=== PATIENT | male | born 1960 | race Caucasian/White ===

== ENCOUNTER 2023-08-24 11:22 | Outpatient (CLI) | payer BC ==
[2023-08-24 19:07] LABS: CHOL/HDL RATIO 5.2 (<5.0); CHOLESTEROL 278 mg/dL; HDL CHOLESTEROL 53 mg/dL; LDL CHOLESTEROL,CALCULATED 186 mg/dL; LDL/HDL RATIO 3.5 (<3.6); TRIGLYCERIDES 197 mg/dL (48-352); VLDL CHOLESTEROL 39 mg/dL
== END 2023-08-24 11:23 | disposition home or self-care (01) ==
LOC: LAB.N 11:22
PROVIDERS: ATTEND Nurse Practitioner
DX: E78.01 Familial hypercholesterolemia (principal)
CPT/HCPCS: 36415; 80061; 83721

== ENCOUNTER 2023-11-06 14:43 | Outpatient (CLI) | payer BC ==
--- NOTE | 2023-11-06 15:34 | Sleep Patient Instructions ---
Sleep Center Visit Summary - Patient Visit Information Reason for Visit: Initial consult for evaluation of sleep disordered breathing and other sleep issues. - Patient Instructions Instructions Attached: Sleep Study Home Monitor Additional Instructions: You will be completing a sleep study, either an in-lab polysomnography (PSG) or home sleep study (HST). You will follow-up in the sleep care office after the sleep study is completed to hear the results and talk about therapy, if needed. You will be called by our office staff to schedule this appointment, but you may contact us with any questions. - Clinic Information Contact: [facility] [address] [place] [email or web address] T: [phone]
--- NOTE | 2023-11-06 15:35 | SLEEP CARE CONSULTATION ---
Information from patient questionnaire entered by Lisbeth Vega. I have reviewed and concur with the information entered by Lisbeth Vega. This document represents the service I personally performed and the decisions made by me, Annie Franklin ARNP. 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 denies: Choking, Snoring, Gasping for air Toss, Turn, or Twitch while sleeping: No Recalls having dreams: Yes Usually gets out of bed at: [id number] Feels refreshed in the morning: Yes (most of the time, unless shorter night) Morning headache: Yes (2-3 times a week; takes tylenol) Sleepy or fatigued during the day: No Ever fallen asleep while driving: No Takes day naps: Yes (not often; 1-2 times a month) Dreams during day naps: No Prior sleep studies: No Additional HPI information: I had the pleasure of seeing FUENTES BOUDREAUX today regarding the possibility of him having a sleep disorder. His current complaints are snoring and frequent night a wakenings. 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 He was talking with his armoured corps officer after a close call with heart. He suggested a sleep study for further evaluation of causation. He also gets up multiple times, 4-6 times a night, to use the restroom. His has noticed that he snores but still sleeps in same bed. - Parasomnia Symptoms Ever been unable to move upon waking from sleep: No Walks in sleep: No Talks in sleep: No Ever acted out dreams in sleep: No Ever felt weak in the knees when startled or emotional: No Bothered by creepy, crawly, restless sensations in legs: No Problems with memory or concentration: No Subjective Initial [place] Sleepiness Scale score: 11 (11/06/23) Past Medical History Past Medical History: reports: Arthritis, Arrythmia (A flutter), GERD Social History The patient's occupation is a RETIRED. Patient is and lives in . Have you smoked in the past 12 months: No Alcohol use: Yes Alcohol amount and frequency: 1-2 GLASSES 1-2 A WEEK Caffeine use: Yes Caffeine amount and frequency: 1 GLASS OR CAN 1-2 WEEK Family History Family history of sleep disordered breathing: No Allergies and Home Medications Known drug allergies: No (as listed) Drug allergies reviewed: Yes Home medication list reviewed: Yes (as listed) Allergy and home medication list: Allergies No Known Drug Allergies Allergy (Verified 11/04/23 09:47) Home Medications Medication Instructions Recorded Confirmed Last Taken Type Acetaminophen See Rx Instructions .[facility] 11/06/23 11/06/23 Unknown History Ascorbic Acid [Vitamin C] See Rx Instructions .[facility] 11/06/23 11/06/23 Unknown History Cholecalciferol (Vitamin D3) See Rx Instructions .[facility] 11/06/23 11/06/23 Unknown History [Vitamin D3] Dandilion Extrct See Rx Instructions .[facility] 11/06/23 Unknown History Emergen C See Rx Instructions .[facility]TE [facility] 11/06/23 Unknown History Glucosamine HCl/Hyaluronic See Rx Instructions .[facility]TE [facility] 11/06/23 11/06/23 Unknown History [Glucosamine-Hyaluronic Tab] Green Super Food See Rx Instructions .[facility]TE [facility] 11/06/23 Unknown History Hgh Stimulate See Rx Instructions .[facility] 11/06/23 Unknown History Ibuprofen See Rx Instructions .[facility]TE [facility] 11/06/23 11/06/23 Unknown History Magnesium See Rx Instructions .[facility]TE [facility] 11/06/23 11/06/23 Unknown History Omeprazole See Rx Instructions .[facility]TE [facility] 11/06/23 11/06/23 Unknown History Papaya Enzyme See Rx Instructions .ROUTE .11/06/23 Unknown History Pb Assist See Rx Instructions .[facility] 11/06/23 Unknown History Potassium Citrate [Potassium] See Rx Instructions .[facility]TE [facility] 11/06/23 11/06/23 Unknown History Prostate 5lx See Rx Instructions .[facility]OUTE [facility] 11/06/23 Unknown History Quercetin See Rx Instructions .[facility]TE [facility] 11/06/23 11/06/23 Unknown History Raw Zinc See Rx Instructions .ROUTE .[facility] 11/06/23 Unknown History Red Yeast Rice Extract [Red Yeast See Rx Instructions .ROUTE .[facility] 11/06/23 11/06/23 Unknown History Rice] Super Enzymes See Rx Instructions .ROUTE .[facility] 11/06/23 Unknown History Turmeric See Rx Instructions .ROUTE .[facility] 11/06/23 11/06/23 Unknown History Vit B Comp/Folic/Choline/Inosi See Rx Instructions .ROUTE [facility] 11/06/23 11/06/23 Unknown History [Super B-50 Complex Capsule] Vitamin E (Dl,Tocopheryl Acet) See Rx Instructions .ROUTE [facility] 11/06/23 11/06/23 Unknown History [Vitamin E] Xeo Juan R See Rx Instructions .ROUTE .[facility] 11/06/23 Unknown History Review of Systems Weight gain over past 5 years: 10-15 Weight loss over past 5 years: 5-10 Cardiovascular: reports: palpitations, irregular heart rate or pulse Gastrointestinal: reports: heartburn Urinary: reports: frequency Neurological: reports: headaches Psychiatric: denies: anxiety, depression Ear/Nose/Throat: reports: wisdom teeth removed. denies: tonsillectomy Endocrine: denies: thyroid disease Musculoskeletal: reports: joint pain, neck pain, back pain Immunologic: reports: rash, itching Physical Exam Vital signs obtained and entered by: LISBETH Deal MA Blood Pressure: 150/71 (RIGHT ARM) Cuff size: regular Heart Rate: 73 O2 Saturation: 98 Height: 5 ft 10.25 in Weight: 195 lb Body Mass Index: 27.8 BMI Classification: Overweight Neck circumference: 16 Mouth and throat: narrow oropharynx Soft palate: long Hard palate: normal Uvula: normal Uvula visualization: 50% Mallampati Class II Tongue: enlarged in size with teeth tobias on lateral edges Tonsils: small Neck: normal w/o lymphadenopathy or thyromegaly Heart: regular rate and rhythm Lungs: clear bilaterally Impression and Plan 1. Suspected Obstructive Sleep Apnea-Hypopnea Syndrome, as suggested by a history of loud and irregular snoring, frequent awakening during the night and nocturia. Narrow oropharynx and obesity are common predisposing factors for obstructive sleep apnea-hypopnea syndrome. I recommend proceeding to polysomnography to confirm the diagnosis and to assess severity. If the patient has significant sleep disordered breathing, a manual CPAP titration study will also be performed to find the optimal treatment pressure. I informed the patient of what the sleep studies involve and after some discussion, obtained agreement to proceed. The pathophysiology of obstructive sleep apnea-hypopnea syndrome was discussed with the patient and health risks of cardiovascular and cerebrovascular disease if not treated. Risks of drowsy driving discussed in detail and patient advised to avoid long distance driving and to ticket puller at the first sign of drowsiness. Patient agreed to plan. * Schedule polysomnography * Avoid long distance driving or driving when feeling sleepy. * Avoid alcohol, sedative and muscle relaxant around bedtime. * Attempt to lose weight. * Review instructions provided by trained office staff on how to prepare for the sleep study. * Return for follow-up after sleep study completed. Counseling Topics: Weight loss health impact Plan: sleep study and followup Visit Type: In Office Time Spent with Patient (minutes): 30 Provider Statement: I spent 100% of the Face to Face Visit with the patient with greater than 50% spent counseling the patient and coordination of care.
[2023-11-06 15:41] VITALS: BP 150/71; O2SAT 98
== END 2023-11-06 14:44 | disposition home or self-care (01) ==
LOC: SC 14:43
PROVIDERS: ATTEND Nurse Practitioner Family
DX: G47.8 Other sleep disorders (principal); R06.83 Snoring; R35.1 Nocturia
CPT/HCPCS: 99203; 99212

== ENCOUNTER 2023-11-19 13:54 | Outpatient (CLI) | payer BC | END 2023-11-19 13:55 | disposition home or self-care (01) | LOC: SC 13:54 | PROVIDERS: ATTEND Nurse Practitioner Family | DX: G47.33 Obstructive sleep apnea (adult) (pediatric) (principal); R09.02 Hypoxemia; E66.3 Overweight; Z68.28 Body mass index [BMI] 28.0-28.9, adult; I49.9 Cardiac arrhythmia, unspecified | CPT/HCPCS: 95806 ==

== ENCOUNTER 2023-12-11 14:07 | Outpatient (CLI) | payer BC ==
--- NOTE | 2023-12-11 14:42 | Sleep Patient Instructions ---
Sleep Center Visit Summary - Patient Visit Information Reason for Visit: Sleep study follow-up - Patient Instructions Instructions Attached: Apnea Sleep Mouthpieces Additional Instructions: You have opted for an oral mandibular appliance to control your sleep apnea. A list of certified dentists in the area was provided for you to find a dentist to have your oral appliance made. Once you have the device, please call and make a follow up appointment. We need to see you after you have been using the appliance for a month. We will evaluate your response to therapy and order a follow up sleep study to check efficiency of treatment. Please call office to schedule a follow up appointment in the sleep care office one month after obtaining new device. - Clinic Information Contact: [facility] [address] [place] [address] [email or web address] T: [phone]
--- NOTE | 2023-12-11 14:45 | SLEEP CARE CONSULTATION ---
Information from patient questionnaire entered by Lisbeth Vega. I have reviewed and concur with the information entered by Lisbeth Vega. This document represents the service I personally performed and the decisions made by , Annie Franklin ARNP. History of Present Illness Service Date and Time: 12/11/2023 1407 Initial [place] Sleepiness Scale score: 11 (11/06/23) Current [place] Sleepiness Scale score: 8 (12/11/23) Additional HPI information: FUENTES BOUDREAUX returns for follow up and results of the recently performed home sleep study. The sleep study done on 11/20/2023 showed mild obstructive sleep apnea with an average AHI of 6.7 and ismael oxygen saturation of 84%. I explained the pathophysiology behind obstructive sleep apnea. We then spent quite a bit of time discussing different treatment options. For mild obstructive sleep apnea, surgery and oral appliance are alternatives to nasal CPAP therapy but in moderate or severe cases, nasal CPAP is the most effective and reliable treatment. Because apnea is primarily in supine position, then positional management therapy could be effective. Methods discussed such as positioning with pillows, using a T-shirt with tennis balls in the back or commercial products that have a pillow format on back to prevent supine sleep. I reviewed the impact of weight changes on sleep apnea and strongly recommended losing weight. After some discussion, the patient opted to go with the oral appliance. Patient counseled not drink alcohol less than 4 hours before bedtime as it can increase snoring and apnea. Patient was cautioned about risks of drowsy driving until sleepiness symptoms resolve. Patient denies drowsy driving. Sleep Study - Results Type of Sleep Study: Home sleep study (COMPLETED 11/20/23) Prior sleep studies: No Polysomnography/Home Sleep Study results: Physician Impression: The quality of the study is good. The length of the study is adequate (> 240 minutes). Please also see the tabulated and graphic data. 1. Obstructive Sleep Apnea-Hypopnea (ICD-10 G47.33), mild, with an AHI of 6.7/hr and ismael SaO2 of 84%. During the study, the patient had 26 apneas (26 obstructive, 0 central, 0 mixed) and 20 hypopneas. The longest episode lasted 72.0 seconds. The respiratory events occurred more frequently during supine sleep (supine AHI was 15.8 and non-supine, 5.94). 2. Hypoxemia (ICD-10 R09.02), mild, with the lowest oxygen saturation of 84 % and 4.4 minutes with SaO2 under 90%. Baseline oxygen saturation was normal (Average oxygen saturation was 94%). Allergies and Home Medications Known drug allergies: Yes (as listed) Drug allergies reviewed: Yes Home medication list reviewed: Yes (no changes) Allergy and home medication list: Allergies cobalt Allergy (Verified 12/11/23 14:12) paraben Allergy (Verified 12/11/23 14:12) tea tree Allergy (Verified 12/11/23 14:12) HYDROPEROXIDES Allergy (Uncoded 12/11/23 14:12) MDBGN Allergy (Uncoded 12/11/23 14:12) MYROXYLAN Allergy (Uncoded 12/11/23 14:12) Review of Systems Review of systems same as previous: Yes (NO CHANGE) Physical Exam Vital signs obtained and entered by: LISBETH Deal MA Blood Pressure: 150/70 (RIGHT ARM) Cuff size: regular Heart Rate: 77 O2 Saturation: 98 Height: 5 ft 10.25 in Weight: 192 lb 12.8 oz Body Mass Index: 27.4 BMI Classification: Overweight Impression and Plan 1. Obstructive Sleep Apnea-Hypopnea Syndrome, mild, with lowest oxygen saturation of 84%. Obviously this is the cause of the patients symptoms of unrefreshed sleep, and excessive daytime sleepiness. Positive pressure therapy could benefit cardiac arrhythmia and gastric reflux. As mentioned above, the patient chose an oral appliance to treat their apnea. A follow up one month after he obtains his oral appliance will be made to see if appliance has reduced symptoms. If so, another polysomnography will be ordered with use of the oral appliance to check efficacy in reducing apnea. Until patient is able to use the oral appliance, positional therapy is advised to avoid supine sleep with pillow positioning or one of the commercial products because apnea is more severe supine. 2. Hypoxemia, mild, with a ismael oxygen saturation of 84% and 4.4 minutes spent under 90%. The baseline oxygen saturation was normal with an average oxygen saturation of 94%. 3. Overweight, unspecified. Currently patients BMI is 27.4. Obesity increases the risk of apnea, CPAP pressure requirements and overall health risks especially cardiovascular and diabetes. Thus patient is advised to lose weight. * Oral appliance * Attempt to lose weight. * Avoid alcohol consumption near bedtime. * Avoid supine sleep until using oral appliance. * The patient is again cautioned about driving until sleepiness completely resolves. * Return one month after oral appliance obtained. I will assess response to therapy at that time. Counseling Topics: Sleeping position, Weight loss health impact Prescriptions: Other (Oral Appliance) Visit Type: In Office Time Spent with Patient (minutes): 20 Provider Statement: I spent 100% of the Face to Face Visit with the patient with greater than 50% spent counseling the patient and coordination of care.
[2023-12-11 14:46] VITALS: BP 150/70; O2SAT 98
== END 2023-12-11 14:08 | disposition home or self-care (01) ==
LOC: SC 14:07
PROVIDERS: ATTEND Nurse Practitioner Family
DX: G47.33 Obstructive sleep apnea (adult) (pediatric) (principal); R09.02 Hypoxemia; E66.3 Overweight; Z68.27 Body mass index [BMI] 27.0-27.9, adult
CPT/HCPCS: 99212; 99213